=== PATIENT | female | born 2000 | race Caucasian/White ===

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

== ENCOUNTER → 2019-01-27 10:10 | Outpatient (CLI) | payer BC, SELFPAY ==
--- NOTE | 2019-01-27 10:16 | XR_ITS ---
PROCEDURE: XR CHEST 2V CLINICAL HISTORY: ACUTE BRONCHITIS Cough COMPARISON: No exams were available for comparison FINDINGS: The cardiomediastinal silhouette and pulmonary vascularity are within normal limits. There is fairly dense consolidation within the lingula consistent with pneumonia. Infiltrate is also present in the right middle lobe. There is mild upper thoracic curvature convex left. No obvious effusion No acute bony abnormalities. IMPRESSION: The pneumonia within the lingula and right middle lobe Dictated by: Robert Alvarado MD 01/27/2019 10:51 Electronically signed by Robert Alvarado MD in [place] 01/27/2019 10:51
== END ==
PROVIDERS: PCP Family Medicine; Visit Provider Family Medicine
DX: J20.9 Acute bronchitis, unspecified (principal)
CPT/HCPCS: 71046

== ENCOUNTER → 2021-03-26 07:06 | Outpatient (CLI) | payer OTHER, SELFPAY ==
[2021-03-26 07:39] LABS: Basophils % 0.8 % (0.1-2.0); Eosinophils # 0.2 K/mm3 (0.0-0.4); Eosinophils % 4.7 % (0.1-12.0); Hematocrit 36.7 % (37.0-47.0); Hemoglobin 12.6 g/dL (12.2-16.2); Lymphocytes # 2.1 K/mm3 (0.7-4.5); Lymphocytes % 41.6 % (10-50); Mean Corpuscular HGB Conc 34.3 g/dL (31.8-35.4); Mean Corpuscular Hemoglobin 27.9 pg (27.0-31.2); Mean Corpuscular Volume 81.2 fl (81-99); Mean Platelet Volume 7.3 fl (7.4-10.4); Monocytes # 0.4 K/mm3 (0.1-1.0); Monocytes % 6.9 % (1.7-9.3); Neutrophils # 2.3 K/mm3 (1.8-7.8); Neutrophils % 46.1 % (37.0-80.0); Platelet Count 255 K/mm3 (142-424); Red Blood Count 4.51 M/mm3 (4.20-5.40); Red Cell Distribution Width 12.7 % (11.5-17.5)
[2021-03-26 09:04] LABS: Erythrocyte Sedimentation Rate 9 mm/hr (0-20)
[2021-03-27 12:14] LABS: Antistreptolysin O Ab 348.8 IU/mL (0.0-200.0)
== END ==
PROVIDERS: PCP Family Medicine; Visit Provider Physician Assistant
DX: R21 Rash and other nonspecific skin eruption (principal)
CPT/HCPCS: 36415; 85025; 85651; 86060